=== PATIENT | male | born 1960 | race Caucasian/White ===

== ENCOUNTER 2021-03-07 08:00 | Outpatient (RCR) | payer OTHER ==
[~2021-03-07 08:00] MED LIST: AMLODIPINE BESYL5 MG; DIOVAN40 MG; DUEXIS 800-26.1 EACH
== END 2021-03-08 ==
LOC: PT 08:00
PROVIDERS: ATTEND Orthopaedic Surgery Adult Reconstructive Orthopaedic Surgery
DX: Z96.652 Presence of left artificial knee joint (principal); M25.562 Pain in left knee; R26.89 Other abnormalities of gait and mobility

== ENCOUNTER 2021-03-31 09:00 | Outpatient (RCR) | payer OTHER | END 2021-04-08 | LOC: PT 09:00 | PROVIDERS: ATTEND Orthopaedic Surgery Adult Reconstructive Orthopaedic Surgery | DX: Z96.652 Presence of left artificial knee joint (principal); M17.12 Unilateral primary osteoarthritis, left knee | CPT/HCPCS: 97139 ==